=== PATIENT | male | born 1980 | race Caucasian/White ===

== ENCOUNTER 2017-06-22 04:45 | Emergency (ER) | payer BC ==
[2017-06-22 04:47] VITALS: BP 142/95; PULSE 100; RESP 16; TEMP 97.9; O2SAT 100
[2017-06-22] MEDS ORDERED: LEVO100T5 PO (05:30)
[2017-06-22] MEDS ORDERED: AK-T0.3S LEFT EYE (05:38)
[2017-06-22] MEDS ORDERED: AUGM875T3 PO (05:38)
--- NOTE | 2017-06-22 05:38 | PD ---
HPI Chief Complaint: Respiratory Symptoms Time Seen by Provider: 05:02 Travel History International Travel<30 days: No Contact w/Intl Traveler<30days: No Traveled to known affect area: No History of Present Illness HPI The patient is a 36 year old male who presents to the [facility] emergency department with a history of cough, congestion, sinus pressure over his cheeks that began on Wednesday. The patient reports that he travel on Wednesday from [place] to [place] for vacation. He reports that he's had a green nasal discharge associated with this. He reports that the symptoms are unrelieved with use of NyQuil and Mucinex. He reports that he's had a subjective fever. He denies having any nausea, vomiting, or diarrhea. He reports that he has a postnasal drip. He denies having any chest congestion. The patient reports that he has a sore throat and right ear pain that began today. The patient additionally awoke up this morning with his eyelashes matted with yellow discharge in the left eye associated with left eye redness. He reports that he does wear contacts. On review of systems, the patient denies any neck pain, chest pain, shortness of breath, abdominal pain, vomiting, diarrhea, urinary symptoms, or neurologic symptoms. PFSH Past Medical History Narrative Medical The patient's past medical history is significant for hypothyroid disorder. 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 Social History Alcohol Use: No Tobacco Use: No Substance Use: No Allergies-Medications (Allergen,Severity, Reaction): Coded Allergies: No Known Allergies (Unverified , 06/22/17) Narrative Medication Levothyroxine Review of Systems Except as stated in HPI: all other systems reviewed are Neg General / Constitutional: Positive: Fever Eyes: No: Visual changes HENT: Positive: Headaches, Sore Throat, Rhinorrhea, Congestion, Earache, No: Ear Discharge Cardiovascular: No: Chest Pain or Discomfort Respiratory: Positive: Cough, No: Shortness of Breath Gastrointestinal: No: Nausea, Vomiting, Diarrhea, Abdominal Pain Genitourinary: No: Dysuria Musculoskeletal: Positive: Myalgias, No: Pain Skin: No Rash Neurologic: No: Weakness, Focal Abnormalities, Change in Mentation, Slurred Speech, Sensory Disturbance Psychiatric: No: Depression Endocrine: No: Polydipsia Hematologic/Lymphatic: No: Easy Bruising Physical Exam Narrative General: The patient is a well-developed well-nourished male in no acute distress. Head and Neck exam: Head is normocephalic atraumatic. Eyes: EOMI, pupils are equal round and reactive to light. The patient has conjunctival injection involving the left eye. Sinuses: The patient has bilateral maxillary sinus tenderness on palpation. Ears: The patient has a bulging erythematous tympanic membrane on the right. Yellow fluid present posterior to it with a blunted cone of light. The left membrane is pearly with a good con of light, no erythema or exudate. Nose: Midline septum with pink mucous membranes Mouth: Dentition unremarkable. Moist mucus membranes. Posterior oropharynx is erythematous with occasional exudates and mild tonsillar hypertrophy. Uvula midline. Airway patent. Neck: No palpable lymphadenopathy. No nuchal rigidity. No thyromegaly. Cardiovascular: Regular rate and rhythm without murmurs, gallops, or rubs. Lungs: Clear to auscultation bilaterally. No wheezes, rhonchi, or rales. Abdomen: Soft, without tenderness to palpation in all 4 quadrants of the abdomen. No guarding, rebound, or rigidity. Normal bowel sounds are audible. No tenderness on palpation of McBurney's point. Negative Fonda sign. Extremities: No clubbing, cyanosis, or edema. 2+ pulses in all 4 extremities. No calf tenderness on palpation. Back: No costovertebral angle tenderness to palpation. Neurologic Exam: Grossly nonfocal. Skin Exam: No rash noted. Intact skin that is warm and dry. Data Data Last Documented VS Vital Signs Date Time Temp Pulse Resp B/P Pulse Ox O2 Delivery O2 Flow Rate FiO2 06/22/17 04:47 97.9 100 16 142/95 100 Room Air MDM Medical Decision Making Medical Screen Exam Complete: Yes Emergency Medical Condition: Yes Medical Record Reviewed: Yes Differential Diagnosis Acute sinusitis, versus acute otitis media, versus strep pharyngitis Narrative Course During the course of the patients emergency department visit, the patients history, examination, and differential diagnosis were reviewed with the patient. The patient's symptoms are most consistent with acute sinusitis with a right acute otitis media. The patient will be discharged home with a prescription for Augmentin and tobramycin eyedrops. The patient is resting comfortably and feels better, is alert and in no distress. The patients results and examination findings were discussed with the patient. The repeat examination is unremarkable and benign. The history, exam, diagnostic testing, and current condition do not suggest any significant pathology to warrant further testing, continued ED treatment, admission, or surgical evaluation at this point. The vital signs have been stable. The patient does not have uncontrollable pain, intractable vomiting, or other significant symptoms. The patient's condition is stable and appropriate for discharge. The patient will pursue further outpatient evaluation with a primary care physician or other designated or consulting physician as indicated in the discharge instructions. The patient expressed understanding and was agreeable with this plan. Diagnosis Primary Impression: Otitis media Qualified Code: H66.001 - Acute suppurative otitis media of right ear without spontaneous rupture of tympanic membrane, recurrence not specified Additional Impression: Conjunctivitis Qualified Code: H10.32 - Acute bacterial conjunctivitis of left eye Referrals: Primary Care Physician 1 week Patient Instructions: General Instructions, Otitis Media (ED), Pharyngitis (ED) , Sinusitis (ED) Additional Instructions: Avoid wearing your contacts. Med/Other Pt SpecificInfo: Prescription(s) given Scripts Amoxicillin-Clavulanate (Augmentin)875-125 Mg Tab1 Tab PO BID 10 Days Ref 0 Prov:Nat Peterson MD 06/22/17 Tobramycin Opth Drops 0.3 % Soln1 Drop LEFT EYE Q4H #1 BOTTLE Ref 0 Prov:Nat Peterson MD 06/22/17 Disposition: 01 DISCHARGE HOME Condition: Stable Nat Peterson MD Jun 22, 2017 05:38
[2017-06-22] MEDS ORDERED: AMOXICILLIN/CLAVULANATE K 875 MG TAB PO ONE (06:00)
== END 2017-06-22 06:09 | disposition home or self-care (01) ==
LOC: NEPC 04:45
DX: H66.001 Acute suppurative otitis media without spontaneous rupture of ear drum, right ear (principal); H10.32 Unspecified acute conjunctivitis, left eye; J01.90 Acute sinusitis, unspecified
CPT/HCPCS: 99284